=== PATIENT | male | born 1995 | race Caucasian/White ===

== ENCOUNTER 2021-03-23 13:35 | Emergency (ER) | payer OTHER ==
[~2021-03-23] VITALS: Ht 188 cm; Wt 81.7 kg
[2021-03-23] MEDS ORDERED: HYDPAM50 PO (14:05)
[2021-03-23] MEDS ORDERED: TRAZ50 PO (14:05)
== END 2021-03-23 14:09 | disposition home or self-care (01) ==
LOC: ER 13:35
DX: F41.9 Anxiety disorder, unspecified (principal); G47.00 Insomnia, unspecified; F15.10 Other stimulant abuse, uncomplicated; Z76.0 Encounter for issue of repeat prescription; F11.10 Opioid abuse, uncomplicated; Z79.899 Other long term (current) drug therapy
CPT/HCPCS: 99282